=== PATIENT | male | born 1980 | race Caucasian/White ===

== ENCOUNTER 2023-01-30 18:32 | Emergency (ER) | payer OTHER ==
[2023-01-30 18:57] VITALS: BP 137/60; PULSE 77; RESP 20; TEMP 98.2; BMI 25.8
== END 2023-01-30 21:14 | disposition home or self-care (01) ==
LOC: FER 18:32
DX: S52.022A Displaced fracture of olecranon process without intraarticular extension of left ulna, initial encounter for closed fracture (principal); S39.012A Strain of muscle, fascia and tendon of lower back, initial encounter; M25.512 Pain in left shoulder; W10.8XXA Fall (on) (from) other stairs and steps, initial encounter
CPT/HCPCS: 72100-TC-FY; 73070-TC-RT-FY; 99284-25

== ENCOUNTER 2023-02-04 15:11 | Emergency (ER) | payer OTHER ==
[2023-02-04] MEDS ORDERED: IBUPROFEN 600 MG TABLET (FP) PO ONE ×2 (15:41→15:43)
[2023-02-04 15:53] VITALS: BP 110/70; PULSE 62; RESP 18; TEMP 98.4; BMI 26.6
== END 2023-02-04 16:46 | disposition home or self-care (01) ==
LOC: FER 15:11
DX: M25.521 Pain in right elbow (principal); M25.512 Pain in left shoulder
CPT/HCPCS: 73030-TC-LT-FY; 99283-25